=== PATIENT | female | born 1960 | race Caucasian/White ===

== ENCOUNTER 2016-08-22 14:19 | Emergency (ER) | payer OTHER ==
[~2016-08-22] VITALS: Ht 172.7 cm; Wt 86.4 kg
[2016-08-22 14:19] VITALS: BP 132/83; PULSE 73; RESP 18; O2SAT 94
[2016-08-22] MEDS ORDERED: Albuterol 2.5 mg/3 mL Inhalation Solution NEB ONE (14:20)
[2016-08-22] MEDS ORDERED: Famotidine 20 mg/50 mL NS Premix IV ONE (14:24)
--- NOTE | 2016-08-22 14:27 | ED.REPORT ---
HPI-Allergic Reaction Date of Service Aug 22, 2016 ED Provider: Dr. Manuel 56 y/o female with no pertinent hx presents to the ED complaining of an allergic reaction to black cherries, onset 2 hours ago The pt states she ate berries at 12:30 and thought she was experiencing heartburn. She took TUMS which did not resolve her sx. She then began experiencing tongue, neck and eye swelling, She states she initially could not breathe through her nose but is feeling better after the Oxygen administration in the ED. She reports having a milder case of similar symptoms a few days ago related to eating cherries. Nursing Notes Stated Complaint: POSSIBLE ALLERGIC REACTION Nursing Notes Reviewed: Yes Allergies: Coded Allergies: No Known Allergies (Unverified , 08/22/16) Scheduled Famotidine (Pepcid) 20 Mg Tablet 20 MG PO BID Prednisone (PredniSONE) 20 Mg Tablet 40 MG PO DIRECTED General Time Seen by MD: 14:27 Chief Complaint Allergic reaction Hx Obtained From: Patient Arrived By: Ambulance Onset Occurred: 1 - 4 hours ago Symptom Duration: Since onset Severity: Current: No pain currently Severity: Maximum: No pain Recent Healthcare: No recent doctor visit Similar Sx Previous: No Past Medical History Past Medical History denies Past Surgical History spinal fusion surgery Smoking History Never Smoker Social History Alcohol Use: "Social" Drug Use: Denies drug use Ambulatory Status Independent Review of Systems Reports: tongue swelling Reports: eye swelling Reports: neck swelling Respiratory: Reports: Shortness of breath (resolved) Complete sys rev & neg: except as marked. Physical Exam Initial Vital Signs Vital Signs (First) Date Time Temp Pulse Resp B/P Pulse Ox O2 Delivery O2 Flow Rate FiO2 08/22/16 14:19 36.6 73 18 132/83 94 Room Air Initial VS: Reviewed Abdomen / GI: Soft, Non-tender Extremities: Vascular intact, Neuro intact, No swelling, No tenderness Neurologic: Alert, Oriented, Nonfocal General/Constitutional: Awake, Alert, Cooperative Distress / Hydration: Positive: Distress mild Respiratory / Chest: Atraumatic, Breath sounds NL, Breath sounds = bilat, No rales, No rhonchi, No wheezing, No stridor Cardiovascular: Heart rate NL, Regular rhythm, Heart sounds NL, No gallop, No murmurs, No rubs Skin: Atraumatic, Warm, Dry, Intact Skin pink and hyperemic. Head / Eyes: Atraumatic, Normocephalic Puffy eyes, edema periorbitally ENT: Atraumatic Swollen uvula Neck: Atraumatic, Full range of motion No stridor in neck Interpretation & Diagnostics Lab Results Interpretation Test 08/22/16 14:20 Hold Purple Top Tube Received (Received) Hold Blue Top Tube Received (Received) Hold [place] Top Tube Received (Received) Re-Eval/Medical Decision Med Decision/Clinical Course Patient presents with significant oropharyngeal swelling, she does not have the sense of throat tightening, her posterior oropharynx is moderately swollen this was some periorbital edema, she has had progressive improvement after medicating in the ER. No epinephrine was given. She has been monitored for a extended period of time and continues to have improvement without worsening of symptoms. She feels comfortable going home. We will discharge on Benadryl, Pepcid, prednisone. Epinephrine autoinjector prescribed. Return and follow-up precautions given Re-Evaluation/Progress #1: Time of Eval: 14:46 Patient Status: Condition improved Re-Evaluation/Progress Note: Rechecked pt. She is feeling better. Re-Evaluation/Progress #2: Time of Eval: 15:24 Patient Status: Condition improved Re-Evaluation/Progress Note: Rechecekd pt. Her condition continues to improve. Epi not necessary. Re-Evaluation/Progress #3: Time of Eval: 15:58 Patient Status: Condition improved Re-Evaluation/Progress Note: Rechecked pt. Discussed diagnosis and plan to discharge. Pt understands and agrees with the plan. F/U instructions and RTER warning given. All questions addressed. Counseled Regarding: Diagnosis, Need for follow-up, When/why to return to ED Discharge & Departure Primary Impression: Allergic reaction Disposition: Home Discharge Condition All VS Reviewed: Yes Condition: Stable Patient Instructions: General Allergic Reaction (ED) Additional Instructions: Use Benadryl 50 mg every 6 hours for the next 2 days, after that you can use it as needed. Take Pepcid and Benadryl as prescribed. If you develop recurrent swelling in your throat or other signs of worsening allergic reaction, use the EpiPen has been prescribed and return to the ER immediately. Follow-up with your regular doctor over the next few days for further evaluation as needed. Referrals: Gely Ivy MD (PCP) Scribe Attestation Portions of this note were transcribed by Dalia Rose. I, , personally performed the history, physical exam and medical decision-making;I reviewed and confirmed the accuracy of the information in the transcribed note. Signed by Aaron Nickerson. 08/22/16 16:36 copies to: Gely Ivy MD, Timothy S DO Aug 22, 2016 14:27 Dalia Rose Aug 22, 2016 14:37
[2016-08-22] MEDS ORDERED: 0.9% Sodium Chloride 1,000 ML IV ONE (14:35)
[2016-08-22] MEDS ORDERED: Famotidine 10 mg/mL 2 mL Inj IVPUSH ONE (14:35)
[2016-08-22] MEDS ORDERED: MethylprednisoLONE Sodium Succinate 62.5 mg/mL 2 mL Inj IVPUSH ONE (14:35)
[2016-08-22 15:36] VITALS: BP 111/75; PULSE 73; RESP 16; O2SAT 97
[2016-08-22] MEDS ORDERED: FAMO20T PO (16:05)
[2016-08-22] MEDS ORDERED: PRE20 PO (16:05)
[2016-08-22 16:09] VITALS: BP 127/67; PULSE 71; RESP 17; O2SAT 98
== END 2016-08-22 16:10 | disposition home or self-care (01) ==
LOC: SED 14:19
DX: T62.1X1A Toxic effect of ingested berries, accidental (unintentional), initial encounter (principal); R22.1 Localized swelling, mass and lump, neck; X58.XXXA Exposure to other specified factors, initial encounter; Y93.9 Activity, unspecified; Y92.9 Unspecified place or not applicable; Y99.8 Other external cause status
CPT/HCPCS: 96361; 96374; 96375; 99284; J1200; J2930; J7030; J7613